=== PATIENT | male | born 1990 | race Caucasian/White ===

== ENCOUNTER 2017-02-06 08:37 | Emergency (ER) | payer OTHER ==
[~2017-02-06] VITALS: Ht 162.6 cm; Wt 60.3 kg
[~2017-02-06 08:37] MED LIST: HYDR-4003 PO; SULF1TAB7 PO
--- NOTE | 2017-02-06 08:39 | ED.REPORT ---
HPI-Sore Throat ONLY HPI/PE done February 06, 2017 ED Provider: The patient is a 26 year old male with history of tonsillitis who presents to the emergency department complaining of a sore throat that began a few days ago. He has also experienced a fever, chills, diaphoresis, malaise, and generalized weakness. His symptoms have worsened since onset. His symptoms are similar to when he has been previously diagnosed with tonsillitis. He denies cough. Nursing Notes Stated Complaint: TONSILLITIS Nursing Notes Reviewed: Yes Allergies: Coded Allergies: No Known Allergies (Verified Allergy, Unknown, 01/29/16) Scheduled Sulfamethoxazole/Trimeth 800-160 mg (Bactrim DS) 1 Each Tablet 1 TABLET PO BID Scheduled PRN Hydrocodone-Acetaminophen 5-325 mg (Hydrocodone-Acetaminophen 5-325 mg) 1 Each Tablet 1 TABLET PO TID PRN PRN For Pain General Time Seen by MD: 08:45 Chief Complaint Sore throat Hx Obtained From: Patient Arrived By: Walk-in Onset Occurred: 3 days ago Symptom Duration: Since onset Location: : Tonsil left: Tonsil right Quality: Pleuritic Severity: Current: Moderate Severity: Maximum: Moderate Recent Healthcare: No recent hospitalization Similar Sx Previous: No Past Medical History Past Medical History Healthy Past Surgical History None Family History Noncontributory Smoking History Never Smoker Social History Alcohol Use: "Social" Drug Use: Denies drug use Other Social History: Local resident Ambulatory Status Independent Review of Systems Constitutional: Reports: Fever, Malaise, Weakness - generalized Ears / Nose / Throat: Reports: Sore throat, Throat pain Respiratory: Denies: Non-productive cough Skin: Reports Diaphoresis Complete sys rev & neg: except as marked. Physical Exam Initial Vital Signs Vital Signs (First) Date Time Temp Pulse Resp B/P Pulse Ox O2 Delivery O2 Flow Rate FiO2 02/06/17 08:42 36.6 90 10 123/71 97 Room Air Initial VS: Reviewed Head / Eyes: Atraumatic, Normocephalic, PERRL Respiratory: Breath sounds normal, Clear to auscultation, No respiratory distress Cardiovascular: Regular rate & rhythm, Heart sounds normal, Intact distal pulses Abdomen / GI: Soft, Non-tender, No guarding, No rebound, No distention Extremities: Vascular intact, Neuro intact, No swelling, No tenderness Skin: Warm, Dry, No cyanosis Neurologic: Alert, Oriented, Nonfocal Psychiatric: Mood/affect normal, Behavior normal, Normal thought content General/Constitutional: Awake, Alert ENT: Airway patent, Mucous membranes moist, No peritonsillar abscess, No pooling of secretions, No trismus Pharynx / Tonsils / Uvula: Positive: Tonsillar erythema L, Tonsillar erythema R , Tonsillar exudate L, Tonsillar exudate R, Tonsillar swelling L, Tonsillar swelling R, Negative: Peritonsil abscess L, Peritonsil abscess R Neck: Supple, No meningismus, Full range of motion, No swelling, Non-tender, No masses Anterior cervical lymphadenopathy. Upper Extremity / MS: Atraumatic, Inspection NL, Full range of motion, No swelling, Non-tender, No snuffbox tenderness, No erythema, No deformity, Neurologic intact, Vascular intact Interpretation & Diagnostics Interpretation & Diagnostics: Rapid strep: negative Lab Results Interpretation Test 02/06/17 09:00 Re-Eval/Medical Decision Med Decision/Clinical Course Strep swab was negative but exam findings are suspicious and concerning for strep throat. He will be given a Bicillin L-A injection and discharged home. Source of Hx: Old records Re-Evaluation/Progress : Time of Eval: 09:16 Re-Evaluation/Progress Note: Rechecked the patient. Discussed plan for discharge. All questions were addressed. Counseled Regarding: Diagnosis, Lab results, Need for follow-up, When/why to return to ED Discharge & Departure Primary Impression: Pharyngitis Pharyngitis/tonsillitis etiology: unspecified etiology Qualified Code: J02.9 - Acute pharyngitis, unspecified Disposition: Home Discharge Condition All VS Reviewed: Yes Condition: Stable Patient Instructions: Strep Throat (ED) Additional Instructions: Thank you for entrusting us with your care today. Your rapid strep was negative but your exam findings are very suspicious for strep throat. You were given an antibiotic injection in the emergency department today. You will not need to take any additional oral antibiotics. Use ibuprofen as needed for your discomfort. You can take 800 mg every 8 hours. Make sure to rest and drink plenty of fluids. Followup with your regular doctor in 1 week if your symptoms are not improving. Seek care sooner for any new or concerning symptoms. Referrals: Leobardo Guzman (PCP) Scribe Attestation Portions of this note were transcribed by Meg Yeboah. I, Dr. Spear personally performed the history, physical exam and medical decision-making; I reviewed and confirmed the accuracy of the information in the transcribed note. Signed by: Diya Post, 02/06/2017 at 0930. copies to: Leobardo Guzman Timothy S DO February 06, 2017 08:39 Meg Yeboah February 06, 2017 08:41
[2017-02-06 08:42] VITALS: BP 123/71; RESP 10; O2SAT 97
[2017-02-06 10:04] VITALS: BP 105/59; PULSE 78; RESP 14; O2SAT 98
== END 2017-02-06 09:25 | disposition home or self-care (01) ==
LOC: SED 08:37
DX: J02.9 Acute pharyngitis, unspecified (principal)
CPT/HCPCS: 87880; 96372; 96374; 96376; 99284; J0561; J1885